=== PATIENT | female | born 1940 | race Caucasian/White ===

== ENCOUNTER → 2024-06-14 | Outpatient (CLI) | payer MEDICARE ==
--- NOTE | 2024-06-15 07:22 | US ---
EXAMINATION TYPE: US thyroid st tissue head/neck DATE OF EXAM: 06/14/2024 COMPARISON: NONE CLINICAL INDICATION: Female, 84 years old with history of NECK PAIN [id number]; TECHNIQUE: Grayscale and color Doppler imaging of the thyroid gland. FINDINGS: GLAND SIZE: Right Lobe: 4.2 x 1.3 x 1.8 cm Overall Parenchyma: heterogeneous Left Lobe: 4.3 x 1.3 x 1.4 cm Overall Parenchyma: heterogeneous Isthmus Thickness: 0.1 cm NODULES RIGHT: # of nodules measured on right: multiple subcentimeter nodules and calcification. Most suspici ous of these is hypoechoic, TR 4 LEFT: # of nodules measured on left: multiple subcentimeter nodules ISTHMUS: # of nodules measured in the isthmus: 0 Bilateral neck scanned, no evidence of lymphadenopathy. IMPRESSION: Multiple subcentimeter nodules. Multinodular goiter likely present. 2017 ACR TI-RADS LEVEL: TR-RADS 4 - Moderately Suspicious: Follow if > 1 cm, FNA if > 1.5 cm *Highest TI-RADS level nodule reported [email or web address] [facility], Workstation: [facility], 06/15/2024 7:20 AM
== END | disposition home or self-care (01) ==
LOC: RADUSWWP 15:18
PROVIDERS: ATTEND Family Medicine
DX: E04.2 Nontoxic multinodular goiter (principal); R10.2 Pelvic and perineal pain
CPT/HCPCS: 76536

== ENCOUNTER → 2024-09-17 | Outpatient (CLI) | payer MEDICARE ==
--- NOTE | 2024-09-17 15:41 | XR ---
EXAMINATION TYPE: XR Hip Complete RT DATE OF EXAM: 09/17/2024 CLINICAL INDICATION: Female, 84 years old with history of M25.551 R HIP PAIN TECHNIQUE: AP and frogleg views of the right hip are obtained. COMPARISON: None. FINDINGS: There is no acute fracture/dislocation evident in the right hip. 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 Femoral head shape is maintained. Overlying soft tissue is unremarkable. 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 [facility], , 09/17/2024 3:39 PM
== END | disposition home or self-care (01) ==
LOC: RADXRMAIN 15:01
PROVIDERS: ATTEND Family Medicine
DX: M16.11 Unilateral primary osteoarthritis, right hip (principal)
CPT/HCPCS: 73502